=== PATIENT | male | born 1935 | race Caucasian/White ===

== ENCOUNTER 2016-08-07 16:22 | Emergency (ER) | payer MEDICARE ==
--- NOTE | 2016-08-07 16:41 | Emergency Department Record ---
History of Present Illness - General Chief Complaint: Fall Injury Stated Complaint: FELL HEAD & SHOULDER INJURY Time Seen by Provider: 08/07/16 16:33 Source: Patient, Family Mode of Arrival: Ambulatory Limitations: No limitations - History of Present Illness Initial Comments: 81 yo male presents to ED with a CC of [id number] just prior to arrival, currently taking warfarin. Patient denies LOC, reports injury to the face/ forehead and right shoulder. Patient has a history of Lewy-body dementia. Patient denies numbness, weakness, or parasthesias to the extremities. MD Complaint: Fall Onset/Timin -: Minutes(s) Fall From: Standing When Fall Occurred: Just prior to arrival Fall Witnessed: Yes, by family Place Fall Occurred: Home Loss of Consciousness: None Prolonged Down Time?: No Symptoms Prior to Fall: None Location: Head, Face Location - Extremities: Right: Shoulder Severity: Moderate Quality: Aching Context: Tripped/slipped - Debbie Coma Scale Eye Response: (4) Open spontaneously Motor Response: (6) Obeys commands Verbal Response: (5) Oriented Debbie Total: 15 - Related Data Home Medications Medication Instructions Recorded Confirmed Last Taken Amlodipine Besylate [Norvasc] 10 mg PO DAILY 01/29/15 08/07/16 08/07/16 Donepezil HCl [Aricept] 10 mg PO DAILY 01/29/15 08/07/16 08/07/16 Hydrochlorothiazide [Hctz 25Mg] 25 mg PO DAILY 01/29/15 08/07/16 08/07/16 Metoprolol/Hydrochlorothiazide 75 mg PO DAILY 01/29/15 08/07/16 08/07/16 [Metoprolol-Hctz 100-50 mg Tab] Omeprazole [Prilosec] 20 mg PO ASDIR 01/29/15 08/07/16 08/07/16 Oxybutynin Chloride [Oxybutynin 2.5 mg PO BID 01/29/15 08/07/16 08/07/16 Chloride ER] Warfarin Sodium [Coumadin] 2.5 mg PO ASDIR 01/29/15 08/07/16 08/07/16 Warfarin Sodium [Coumadin] 5 mg PO ASDIR 01/29/15 08/07/16 08/07/16 Aspirin [Adult Low Dose Aspirin EC] 81 mg PO DAILY 0408/07/16 08/07/16 Cholecalciferol (Vitamin D3) 1,500 unit PO DAILY 08/07/16 08/07/16 08/07/16 [Vitamin D3] Finasteride [Proscar] 5 mg PO DAILY 08/07/16 08/07/16 08/07/16 Tamsulosin HCl [Flomax] 0.4 mg PO DAILY 08/07/16 08/07/16 08/07/16 Allergies Allergy/AdvReac Type Severity Reaction Status Date / Time Penicillins [PENICILLINS] Allergy Unknown HIVES Verified 08/07/16 16:42 Review of Systems Constitutional: Denies: Chills, Fever, Malaise, Night sweats Eyes: Denies: Eye discharge, Eye pain ENT: Denies: Congestion, Ear pain, Epistaxis Respiratory: Denies: Cough, Dyspnea Cardiovascular: Denies: Chest pain, Dyspnea on exertion Endocrine: Denies: Fatigue, Heat or cold intolerance Gastrointestinal: Denies: Abdominal pain, Nausea, Vomiting Genitourinary: Denies: Incontinence, Retention Musculoskeletal: Reports: Arthralgia (right shoulder pain). Denies: Back pain, Gout, Joint swelling Skin: Reports: Other (abrasions to the face/forehead). Denies: Bruising, Change in color, Change in hair/nails Neurological: Denies: Abnormal gait, Confusion, Headache, Seizure Psychiatric: Denies: Anxiety Hematological/Lymphatic: Reports: Easy bleeding. Denies: Anemia, Blood Clots Past Medical History - SOCIAL HISTORY Smoking Status: Former smoker - RESPIRATORY Hx Respiratory Disorders: Yes Hx Sleep Apnea: Yes Hx of CPAP: Yes - CARDIOVASCULAR Hx Cardio Disorders: Yes Hx Hypertension: Yes Hx Irregular Heartbeat: Yes (a fib) - NEURO Hx Neuro Disorders: Yes Hx Dementia: Yes Comment:: Lewy body dementia - GI Hx GI Disorders: Yes Hx Reflux: Yes Hx of Polyps: Yes - Hx Genitourinary Disorders: Yes Hx Bladder Problem: Yes (urgency) - ENDOCRINE Hx Endocrine Disorders: No - MUSCULOSKELETAL Hx Musculoskeletal Disorders: Yes Hx Arthritis: Yes - PSYCH Hx Psych Problems: Yes Hx Anxiety: Yes Comment:: panic attacks and hallucinations - HEMATOLOGY/ONCOLOGY Hx Hematology/Oncology Disorders: Yes Hx Bruising: Yes Hx Clotting Problems: Yes (r/t coumadin) Family Medical History Hx Cancer: Father *Cancer Comment: colon Hx Dementia: Father Hx Diabetes: Mother Hx Heart Disease: Mother Hx HTN: Mother Physical Exam - General General Appearance: Alert, Oriented x3, Cooperative, Moderate distress, Other ( resting tremor on examination that improves with active movement) Limitations: No limitations - Head Head exam: Other (Abrasions to the right forehead/maxillary region) Head exam detail: Abrasion. negative: Contusion, Galan's sign, Hematoma, Laceration - Eye Eye exam: Normal appearance. negative: Conjunctival injection, Periorbital swelling, Periorbital tenderness, Scleral icterus - ENT Ear exam: negative: Auricular hematoma, Auricular trauma Nasal Exam: negative: Active bleeding, Discharge, Dried blood, Foreign body Mouth exam: negative: Drooling, Laceration, Muffled voice, Tongue elevation - Neck Neck exam: Normal inspection. negative: Meningismus, Tenderness - Respiratory Respiratory exam: Normal lung sounds bilaterally. negative: Rales, Respiratory distress, Rhonchi, Stridor - Cardiovascular Cardiovascular Exam: Regular rate, Normal rhythm, Normal heart sounds - GI/Abdominal GI/Abdominal exam: Soft. negative: Rebound, Rigid, Tenderness - Rectal Rectal exam: Deferred - exam: Deferred - Extremities Extremities exam: Tenderness, Other (TTP along the anterior right shoulder, no evidence for dislocation). negative: Calf tenderness, Pedal edema - Back Back exam: Denies: CVA tenderness (R), CVA tenderness (L) - Neurological Neurological exam: Alert, Normal gait, Oriented X3. negative: Motor sensory deficit - Psychiatric Psychiatric exam: Normal affect, Normal mood - Skin Skin exam: Abrasion (as described above), Normal color Type of lesion: abrasion Course - Reevaluation(s) Reevaluation #1: 08/07/16 17:29 Labs reviewed, INR 1.8, BUN 25/Creatinine 1.5 (at baseline). Awaiting imaging studies at this time. Reevaluation #2: 08/07/16 17:39 CT Brain: Small vessel ischemic disease, nothing acute, chronic retained FB frontal scalp CT Cervical Spine: Degenerative changes, nothing acute CT Maxillo-facial bones: No acute fractures Right Shoulder: Nothing acute. Patient and family updated on all results, patient appears stable for discharge at this time. Reevaluation #3: 08/07/16 17:47 Discussed the risk of delayed bleeding with the patient and family, due to his dementia and confusion/agitation with unfamiliar surroundings as well as the overall low INR, I think the patient would be more comfortable at home and further that the risk of delayed bleeding is low overall. Family was counseled on signs to return to ED for, including headache, confusion, or alteration from his baseline mental status. Medical Decision Making - Lab Data Result diagrams: 08/07/16 16:44 08/07/16 16:44 Critical Care Time Critical Care Time: Yes Total Critical Care Time: 35 Critical Care Time: Trauma activation and multiple CT imaging studies for evaluation. Disposition Disposition: Discharge Clinical Impression: Multiple contusions, Warfarin-induced coagulopathy Fall from standing Qualifiers: Encounter type: initial encounter Qualified Code(s): W19.XXXA - Unspecified fall, initial encounter Abrasion of forehead Qualifiers: Encounter type: initial encounter Qualified Code(s): S00.81XA - Abrasion of other part of head, initial encounter Disposition: Home, Self-Care Condition: (2) Stable Instructions: Fall Prevention for Older Adults (ED) Additional Instructions: Return to ED if your symptoms worsen or if you have any concerns. Follow-up with your family doctor in 3-5 days as directed. Ibuprofen 400 mg every 8-12 hours as needed for the next 3-5 days. Forms: Patient Portal Access Time of Disposition: 17:43
[2016-08-07 16:52] LABS: BASO % 0.7 % (0-6); EOS % 2.4 % (0-6); GRAN % 65.9 % (47-80); HEMATOCRIT 39.7 % (42.0-52.0); HEMOGLOBIN 13.2 gm/dl (14.0-18.0); MEAN CELL VOLUME 86.5 fl (81-97); MEAN CORPUSCULAR HGB CONC 33.2 g/dl (32-36); PLATELET COUNT 269 K/uL (130-400); RED BLOOD COUNT 4.59 M/uL (4.40-5.70); RED CELL DISTRIBUTION WIDTH 13.6 % (11.5-14.5)
[2016-08-07 16:53] LABS: MEAN CORPUSCULAR HEMOGLOBIN 28.7 pg (27-33)
[2016-08-07 17:01] LABS: INR 1.8; PROTHROMBIN TIME (PATIENT) 20.3 SECONDS (9.5-12.1)
[2016-08-07 17:02] LABS: ALB/GLOB RATIO 1.4 (1.1-1.8); ALBUMIN 4.2 gm/dL (3.5-5.0); ANION GAP 8.9 (7-16); BILIRUBIN,TOTAL 0.75 mg/dL (0.2-1.3); CARBON DIOXIDE 31.1 mmol/L (22-30); CREATININE 1.5 mg/dL (0.66-1.25); TOTAL PROTEIN 7.3 gm/dL (6.3-8.2)
== END 2016-08-07 18:06 | disposition home or self-care (01) ==
LOC: ER 16:22
DX: S00.83XA Contusion of other part of head, initial encounter (principal); S00.81XA Abrasion of other part of head, initial encounter; M25.511 Pain in right shoulder; M50.30 Other cervical disc degeneration, unspecified cervical region; D68.32 Hemorrhagic disorder due to extrinsic circulating anticoagulants; T45.515A Adverse effect of anticoagulants, initial encounter; G31.83 Neurocognitive disorder with Lewy bodies; F02.80 Dementia in other diseases classified elsewhere, unspecified severity, without behavioral disturbance, psychotic disturbance, mood disturbance, and anxiety; I10 Essential (primary) hypertension; Z87.891 Personal history of nicotine dependence; W01.0XXA Fall on same level from slipping, tripping and stumbling without subsequent striking against object, initial encounter; Y92.009 Unspecified place in unspecified non-institutional (private) residence as the place of occurrence of the external cause; I48.91 Unspecified atrial fibrillation; Z79.01 Long term (current) use of anticoagulants
CPT/HCPCS: 70450; 70486; 72125; 80053; 85025; 85610; 99284

== ENCOUNTER 2016-09-11 16:10 | Emergency (ER) | payer MEDICARE ==
--- NOTE | 2016-09-11 16:34 | Emergency Department Record ---
History of Present Illness - General Chief Complaint: Fall Injury Stated Complaint: FALL Time Seen by Provider: 09/11/16 16:29 Source: Patient Mode of Arrival: Wheelchair Limitations: No limitations - History of Present Illness Initial Comments: 81 yo male presents to ED s/p [id number] while in the lobby of the hospital leaving after his physical therapy appointment this afternoon. Patient denies injury, denies headache or injury, denies neck pain, denies LOC or syncope, and denies extremity injury. Patient does however take Coumadin at home. MD Complaint: Fall Onset/Timin -: Minutes(s) Fall From: Standing When Fall Occurred: Just prior to arrival Fall Witnessed: Yes, by family, Yes, by bystander Place Fall Occurred: Other Loss of Consciousness: None Prolonged Down Time?: No Symptoms Prior to Fall: None Severity: Mild Severity scale (1-10): 2 Quality: Aching Context: Tripped/slipped, Other Associated Symptoms: Denies - Debbie Coma Scale Eye Response: (4) Open spontaneously Motor Response: (6) Obeys commands Verbal Response: (5) Oriented Debbie Total: 15 - Related Data Home Medications Medication Instructions Recorded Confirmed Last Taken Amlodipine Besylate [Norvasc] 10 mg PO DAILY 01/29/15 09/11/16 08/07/16 Donepezil HCl [Aricept] 10 mg PO DAILY 01/29/15 09/11/16 08/07/16 Hydrochlorothiazide [Hctz 25Mg] 25 mg PO DAILY 01/29/15 09/11/16 08/07/16 Metoprolol/Hydrochlorothiazide 75 mg PO DAILY 01/29/15 09/11/16 08/07/16 [Metoprolol-Hctz 100-50 mg Tab] Omeprazole [Prilosec] 20 mg PO ASDIR 01/29/15 09/11/16 08/07/16 Oxybutynin Chloride [Oxybutynin 2.5 mg PO BID 01/29/15 09/11/16 08/07/16 Chloride ER] Warfarin Sodium [Coumadin] 2.5 mg PO ASDIR 01/29/15 09/11/16 08/07/16 Warfarin Sodium [Coumadin] 5 mg PO ASDIR 01/29/15 09/11/16 08/07/16 Aspirin [Adult Low Dose Aspirin EC] 81 mg PO DAILY 08/07/16 09/11/16 08/07/16 Cholecalciferol (Vitamin D3) 1,500 unit PO DAILY 08/07/16 09/11/16 08/07/16 [Vitamin D3] Finasteride [Proscar] 5 mg PO DAILY 08/07/16 09/11/16 08/07/16 Tamsulosin HCl [Flomax] 0.4 mg PO DAILY 08/07/16 09/11/16 08/07/16 Allergies Allergy/AdvReac Type Severity Reaction Status Date / Time Penicillins [PENICILLINS] Allergy Unknown HIVES Verified 08/07/16 16:42 Travel Screening - Travel/Exposure Within Last 30 Days Have you traveled within the last 30 days?: No Review of Systems Constitutional: Denies: Chills, Fever, Malaise, Night sweats Eyes: Denies: Eye discharge, Eye pain ENT: Denies: Congestion, Ear pain, Epistaxis Respiratory: Denies: Cough, Dyspnea Cardiovascular: Denies: Chest pain, Dyspnea on exertion Endocrine: Denies: Fatigue, Heat or cold intolerance Gastrointestinal: Denies: Abdominal pain, Nausea, Vomiting Genitourinary: Denies: Incontinence, Retention Musculoskeletal: Denies: Arthralgia, Back pain Skin: Denies: Bruising, Change in color, Change in hair/nails Neurological: Denies: Abnormal gait, Confusion, Headache, Seizure Psychiatric: Denies: Anxiety Hematological/Lymphatic: Reports: Easy bleeding, Easy bruising. Denies: Anemia , Blood Clots Past Medical History - SOCIAL HISTORY Smoking Status: Former smoker Alcohol Use: None Drug Use: None - RESPIRATORY Hx Respiratory Disorders: Yes Hx Sleep Apnea: Yes Hx of CPAP: Yes - CARDIOVASCULAR Hx Cardio Disorders: Yes Hx Hypertension: Yes Hx Irregular Heartbeat: Yes (a fib) - NEURO Hx Neuro Disorders: Yes Hx Dementia: Yes Comment:: Lewy body dementia - GI Hx GI Disorders: Yes Hx Reflux: Yes Hx of Polyps: Yes - Hx Genitourinary Disorders: Yes Hx Bladder Problem: Yes (urgency) - ENDOCRINE Hx Endocrine Disorders: No - MUSCULOSKELETAL Hx Musculoskeletal Disorders: Yes Hx Arthritis: Yes - PSYCH Hx Psych Problems: Yes Hx Anxiety: Yes Comment:: panic attacks and hallucinations - HEMATOLOGY/ONCOLOGY Hx Hematology/Oncology Disorders: Yes Hx Bruising: Yes Hx Clotting Problems: Yes (r/t coumadin) Family Medical History Any Significant Family History?: Yes Hx Cancer: Father *Cancer Comment: colon Hx Dementia: Father Hx Diabetes: Mother Hx Heart Disease: Mother Hx HTN: Mother Physical Exam - General General Appearance: Alert, Oriented x3, Cooperative, No acute distress, Other ( resting tremor on examination secondary to Lewy Body dementia) Limitations: No limitations - Head Head exam: Atraumatic, Normocephalic, Normal inspection Head exam detail: negative: Abrasion, Contusion, Galan's sign, General tenderness, Hematoma, Laceration - Eye Eye exam: Normal appearance. negative: Conjunctival injection, Periorbital swelling, Periorbital tenderness, Scleral icterus - ENT Ear exam: negative: Auricular hematoma, Auricular trauma Nasal Exam: negative: Active bleeding, Discharge, Dried blood, Foreign body Mouth exam: negative: Drooling, Laceration, Muffled voice, Tongue elevation - Neck Neck exam: Normal inspection. negative: Meningismus, Tenderness - Respiratory Respiratory exam: Normal lung sounds bilaterally. negative: Rales, Respiratory distress, Rhonchi, Stridor - Cardiovascular Cardiovascular Exam: Regular rate, Normal rhythm, Normal heart sounds - GI/Abdominal GI/Abdominal exam: Soft. negative: Rebound, Rigid, Tenderness - Rectal Rectal exam: Deferred - exam: Deferred - Extremities Extremities exam: Other (resting tremor on examination). negative: Calf tenderness, Pedal edema, Tenderness - Back Back exam: Denies: CVA tenderness (R), CVA tenderness (L), Paraspinal tenderness , Rash noted - Neurological Neurological exam: Alert, Oriented X3. negative: Motor sensory deficit - Psychiatric Psychiatric exam: Normal affect, Normal mood - Skin Skin exam: Normal color. negative: Abrasion Type of lesion: negative: abrasion Course Vital Signs 09/11/16 16:14 Temperature 98.8 F Pulse Rate 68 Respiratory 20 Rate Blood Pressure 119/76 Pulse Ox 96 - Reevaluation(s) Reevaluation #1: 09/11/16 17:07 CT Brain: Chronic changes, nothing acute. CT Cervical Spine: Degenerative changes, nothing acute. Patient updated on his radiology results, patient is putting on his jacket and asking to go home, ambulating with steady gait. Patient appears stable for discharge at this time. Disposition Disposition: Discharge Clinical Impression: Fall from standing Qualifiers: Encounter type: initial encounter Qualified Code(s): W19.XXXA - Unspecified fall, initial encounter Disposition: Home, Self-Care Condition: (2) Stable Instructions: Fall Prevention for Older Adults (ED) Additional Instructions: Return to ED if your symptoms worsen or if you have any concerns. Follow-up with your family doctor in 3-5 days as directed. Forms: Patient Portal Access Time of Disposition: 17:10
== END 2016-09-11 17:18 | disposition home or self-care (01) ==
LOC: ER 16:10
DX: M25.511 Pain in right shoulder (principal); G89.11 Acute pain due to trauma; M50.30 Other cervical disc degeneration, unspecified cervical region; G31.83 Neurocognitive disorder with Lewy bodies; F02.80 Dementia in other diseases classified elsewhere, unspecified severity, without behavioral disturbance, psychotic disturbance, mood disturbance, and anxiety; I48.91 Unspecified atrial fibrillation; Z79.01 Long term (current) use of anticoagulants; W01.0XXA Fall on same level from slipping, tripping and stumbling without subsequent striking against object, initial encounter; Y92.238 Other place in hospital as the place of occurrence of the external cause
CPT/HCPCS: 70450; 72125; 99283

== ENCOUNTER 2017-03-25 17:05 | Emergency (ER) | payer MEDICARE ==
--- NOTE | 2017-03-25 17:59 | Emergency Department Record ---
History of Present Illness - General Chief Complaint: Fall Injury Stated Complaint: FALL HIT HEAD,ON BLOOD THINNER Time Seen by Provider: 03/25/17 17:48 Source: Patient Mode of Arrival: Wheelchair Limitations: No limitations - History of Present Illness Initial Comments: 81 yo male presents to ED for evaluation following a fall while attempting to step around his walker GRETCHEN. Patient reports that he feel backwards striking his head, denies LOC or syncope, and reports mild STS to the back of the head. Patient also reports mild pain to the left mid-femur on examination. Patient denies numbness, tingling, or loss of strength to the extremities, and denies the need for analgesia on examination. Patient is currently taking Coumadin for his atrial fibrillation. MD Complaint: Fall Onset/Timin -: Hour(s) Fall From: Standing, Other When Fall Occurred: 1-3 hours [employer] Fall Witnessed: Yes, by family Place Fall Occurred: Home Loss of Consciousness: None Prolonged Down Time?: No Symptoms Prior to Fall: None Location: Head Location - Extremities: Left: Thigh Severity: Moderate Quality: Aching Context: Tripped/slipped Associated Symptoms: Denies - Kaplan Coma Scale Eye Response: (4) Open spontaneously Motor Response: (6) Obeys commands Verbal Response: (5) Oriented Kaplan Total: 15 - Related Data Home Medications Medication Instructions Recorded Confirmed Last Taken Carbidopa/Levodopa 25Mg/100Mg 25 mg PO TID 03/25/17 03/25/17 Unknown [Sinemet] Sertraline HCl [Zoloft] 25 mg PO DAILY 03/25/17 03/25/17 Unknown Allergies Allergy/AdvReac Type Severity Reaction Status Date / Time Penicillins [PENICILLINS] Allergy Unknown HIVES Verified 08/07/16 16:42 Travel Screening - Travel/Exposure Within Last 30 Days Have you traveled within the last 30 days?: No Review of Systems Constitutional: Denies: Chills, Fever, Malaise, Night sweats Eyes: Denies: Eye discharge, Eye pain ENT: Denies: Congestion, Ear pain, Epistaxis Respiratory: Denies: Cough, Dyspnea Cardiovascular: Denies: Chest pain, Dyspnea on exertion Endocrine: Denies: Fatigue, Heat or cold intolerance Gastrointestinal: Denies: Abdominal pain, Nausea, Vomiting Genitourinary: Denies: Incontinence, Retention Musculoskeletal: Reports: Arthralgia. Denies: Back pain, Gout, Joint swelling Skin: Denies: Bruising, Change in color Neurological: Reports: Headache. Denies: Abnormal gait, Confusion, Numbness, Tingling Psychiatric: Denies: Anxiety Hematological/Lymphatic: Reports: Easy bleeding, Easy bruising. Denies: Anemia , Blood Clots Past Medical History - SOCIAL HISTORY Smoking Status: Former smoker Alcohol Use: None Drug Use: None - RESPIRATORY Hx Respiratory Disorders: Yes Hx Sleep Apnea: Yes Hx of CPAP: Yes - CARDIOVASCULAR Hx Cardio Disorders: Yes Hx Hypertension: Yes Hx Irregular Heartbeat: Yes (a fib) - NEURO Hx Neuro Disorders: Yes Hx Dementia: Yes Comment:: Lewy body dementia - GI Hx GI Disorders: Yes Hx Reflux: Yes Hx of Polyps: Yes - Hx Genitourinary Disorders: Yes Hx Bladder Problem: Yes (urgency) - ENDOCRINE Hx Endocrine Disorders: No - MUSCULOSKELETAL Hx Musculoskeletal Disorders: Yes Hx Arthritis: Yes - PSYCH Hx Psych Problems: Yes Hx Anxiety: Yes Comment:: panic attacks and hallucinations - HEMATOLOGY/ONCOLOGY Hx Hematology/Oncology Disorders: Yes Hx Bruising: Yes Hx Clotting Problems: Yes (r/t coumadin) Family Medical History Any Significant Family History?: Yes Hx Cancer: Father *Cancer Comment: colon Hx Dementia: Father Hx Diabetes: Mother Hx Heart Disease: Mother Hx HTN: Mother Physical Exam - General General Appearance: Alert, Oriented x3, Cooperative, Mild distress Limitations: No limitations - Head Head exam: Atraumatic, Normocephalic, Normal inspection Head exam detail: negative: Abrasion, Contusion, Galan's sign, General tenderness, Hematoma, Laceration - Eye Eye exam: Normal appearance. negative: Conjunctival injection, Periorbital swelling, Periorbital tenderness, Scleral icterus - ENT Ear exam: negative: Auricular hematoma, Auricular trauma Nasal Exam: negative: Active bleeding, Discharge, Dried blood, Foreign body Mouth exam: negative: Drooling, Laceration, Muffled voice, Tongue elevation - Neck Neck exam: Normal inspection. negative: Meningismus, Tenderness - Respiratory Respiratory exam: Normal lung sounds bilaterally. negative: Respiratory distress, Rhonchi, Stridor - Cardiovascular Cardiovascular Exam: Regular rate, Normal rhythm, Normal heart sounds - GI/Abdominal GI/Abdominal exam: Soft. negative: Rebound, Rigid, Tenderness - Rectal Rectal exam: Deferred - exam: Deferred - Extremities Extremities exam: Tenderness, Other (Mild TTP to the left mid-femur, FROM actively on examination however. Strong DPP.). negative: Calf tenderness, Pedal edema - Back Back exam: Denies: CVA tenderness (R), CVA tenderness (L) - Neurological Neurological exam: Alert, Oriented X3 - Psychiatric Psychiatric exam: Normal affect, Normal mood - Skin Skin exam: Normal color. negative: Abrasion Type of lesion: negative: abrasion Course - Reevaluation(s) Reevaluation #1: 03/25/17 18:16 EKG: Atrial Fibrillation Approx. 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 Labs are otherwise grossly unremarkable for an acute process. CT imaging results are pending. Reevaluation #3: 03/25/17 19:17 Left femur: DJD, no acute process Left hip/Pelvis: DJD, no acute fracture CT Brain: Atrophy, small vessel ischemic changes, mucosal thickening maxillary/ right frontal sinuses CT Cervical Spine: No fracture, DJD, no change from previous. Patient was updated on all results, appears stable for discharge at this time. Medical Decision Making - Lab Data Result diagrams: 03/25/17 18:00 03/25/17 18:00 Disposition Disposition: Discharge Clinical Impression: Warfarin-induced coagulopathy Fall Qualifiers: Encounter type: initial encounter Qualified Code(s): W19.XXXA - Unspecified fall, initial encounter Fall from standing Qualifiers: Encounter type: initial encounter Qualified Code(s): W19.XXXA - Unspecified fall, initial encounter Disposition: Home, Self-Care Condition: (2) Stable Instructions: Fall Prevention for Older Adults (ED) Additional Instructions: Return to ED if your symptoms worsen or if you have any concerns. Follow-up with your family doctor in 3-5 days as directed. Forms: Patient Portal Access Time of Disposition: 19:19 Quality - Quality Measures Quality Measures: N/A - Blood Pressure Screening Does Patient Have Any of the Following: No Blood Pressure Classification: Pre-Hypertensive BP Reading Systolic Measurement: 133 Diastolic Measurement: 72 Screening for High Blood Pressure: < Pre-Hypertensive BP, F/U Documented > [ [id number]] Pre-Hypertensive Follow-up Interventions: Referral to alternative/primary care provider.
[2017-03-25 18:16] LABS: BASO % 0.6 % (0-6); EOS % 5.7 % (0-6); GRAN % 56.3 % (47-80); HEMATOCRIT 38.2 % (42.0-52.0); HEMOGLOBIN 12.6 gm/dl (14.0-18.0); LYMPH % 27.4 % (16-45); MEAN CELL VOLUME 87.4 fl (81-97); MEAN CORPUSCULAR HEMOGLOBIN 28.8 pg (27-33); MEAN PLATELET VOLUME 8.8 fl (7.4-10.4); PLATELET COUNT 281 K/uL (130-400); RED BLOOD COUNT 4.37 M/uL (4.40-5.70); RED CELL DISTRIBUTION WIDTH 13.8 % (11.5-14.5); WHITE BLOOD COUNT W/O DIFF 6.9 K/uL (4.2-12.2)
[2017-03-25 18:28] LABS: INR 1.59; PROTHROMBIN TIME (PATIENT) 17.2 SECONDS (9.5-12.1)
[2017-03-25 18:29] LABS: BLOOD UREA NITROGEN 26 mg/dL (8-23); CREATININE 1.2 mg/dL (0.7-1.2); EST GLOMERULAR FILTRATION RATE > 60 mL/min; TOTAL PROTEIN 6.6 g/dL (6.6-8.7)
[2017-03-25 18:31] LABS: GLUCOSE,RANDOM 106 mg/dL (74-109)
[2017-03-25 18:34] LABS: ALB/GLOB RATIO 1.4 (1.1-1.8); ALBUMIN 3.8 g/dL (4.0-5.0); ALKALINE PHOSPHATASE 83 U/L (40-129); ALT/SGPT 8 U/L (<41); AST/SGOT 17 U/L (10.0-50.0)
--- NOTE | 2017-03-26 09:02 | CT SCAN REPORT ---
EXAM: CT OF THE HEAD WITHOUT CONTRAST HISTORY: FALL WITH TRAUMA TO RIGHT SIDE OF HEAD. TECHNIQUE: Routine noncontrast CT examination of the head was performed. Comparison: CT of the head without contrast dated 09/11/16. FINDINGS: The subarachnoid spaces remain dilated consistent with generalized atrophy. The ventricles are not enlarged. Mild periventricular and subcortical white matter lucencies are again noted scattered in each cerebral hemisphere symmetrically. These are nonspecific, but likely areas of chronic small vessel ischemia. No new area of abnormally increased or decreased attenuation is noted throughout the brain substance. No new extraaxial fluid collection is demonstrated. No skull fracture is seen. There is mild mucosal thickening scattered within the maxillary sinuses as well as the inferior aspect of the right frontal sinus. The paranasal sinuses and mastoid air cells are otherwise clear. The orbits as visualized are unremarkable. IMPRESSION: 1. NO CT EVIDENCE OF AN ACUTE INTRACRANIAL ABNORMALITY NOR SKULL FRACTURE WITHOUT SIGNIFICANT CHANGE IN APPEARANCE OF THE BRAIN SINCE 09/11/16. 2. GENERALIZED ATROPHY REDEMONSTRATED. WHITE MATTER LUCENCIES AGAIN NOTED IN EACH CEREBRAL HEMISPHERE CONSISTENT WITH CHRONIC SMALL VESSEL ISCHEMIA. 3. MINOR MUCOSAL THICKENING WITHIN THE MAXILLARY SINUSES AND THE INFERIOR ASPECT OF THE RIGHT FRONTAL SINUS. JOB NUMBER: [id number] MTDD
--- NOTE | 2017-03-26 09:10 | CT SCAN REPORT ---
EXAM: CT OF THE CERVICAL SPINE WITHOUT CONTRAST HISTORY: FALL, ANTICOAGULATION THERAPY. TECHNIQUE: Thin collimation helical CT examination of the cervical spine was performed in the axial plane without intravenous contrast administration. Coronal and sagittal reformatted images are generated and reviewed. Comparison: CT of the cervical spine without contrast dated 09/11/16. FINDINGS: There is redemonstration of straightening of the normal cervical lordosis. The vertebral bodies are otherwise normal in alignment. The vertebral body height is stable with mild smooth concave deformities of the superior and inferior end plates of C3 as well as the superior end plate of C7 redemonstrated. There is a small focus of sclerosis within the left aspect of the C5 vertebral body consistent with a bone island. No acute fracture, subluxation, or prevertebral soft tissue swelling is demonstrated. Moderate degenerative changes of the atlantodental joint redemonstrated, stable. Multilevel degenerative disk/degenerative end plate changes identified most pronounced at the C6-C7 level where they are moderate in degree. They are mild elsewhere. No new osseous cervical spinal stenosis. Multilevel bilateral facet arthropathy is present primarily mild in degree though at the C2-C3 level on the left it is moderate to advanced and causes mild to moderate neural foraminal narrowing. There is also mild to moderate bilateral neural foraminal narrowing at the C3-C4 level, stable. No new cervical mass nor adenopathy is seen. There is minor mucosal thickening within the maxillary sinuses. There is minor atherosclerosis of the common carotid arteries. Minor biapical lung scarring is present. IMPRESSION: 1. NO ACUTE FRACTURE, SUBLUXATION, OR PREVERTEBRAL SOFT TISSUE SWELLING WITHOUT SIGNIFICANT CHANGE IN APPEARANCE OF THE CERVICAL SPINE SINCE 09/11/16. 2. STRAIGHTENING OF THE NORMAL CERVICAL LORDOSIS LIKELY DUE TO POSITIONING OR MUSCLE SPASM. 3. MULTILEVEL DEGENERATIVE CHANGES REDEMONSTRATED. JOB NUMBER: [id number] MTDD
--- NOTE | 2017-03-26 09:12 | RADIOLOGY REPORT ---
EXAM: LEFT FEMUR, TWO VIEWS HISTORY: LEFT HIP AND GROIN PAIN POST FALL TODAY. TECHNIQUE: AP and lateral views of the left femur were obtained. Comparison: Same day unilateral left hip with pelvis. Encounter: Initial. FINDINGS: There is borderline osteopenia. No acute fracture, dislocation, or destructive bone lesion is seen. There are mild degenerative changes of the left hip and left knee. No focal soft tissue abnormality is seen. IMPRESSION: 1. NO ACUTE FRACTURE NOR DISLOCATION IDENTIFIED. 2. MILD DEGENERATIVE CHANGES OF THE LEFT HIP AND LEFT KNEE. JOB NUMBER: [id number] MTDD
--- NOTE | 2017-03-26 09:25 | RADIOLOGY REPORT ---
EXAM: LEFT HIP HISTORY: LEFT HIP PAIN RADIATING INTO GROIN SINCE FALL TODAY. TECHNIQUE: An AP view of the pelvis was obtained as well as AP and frog leg lateral views of the left hip. Comparison: Same day two views of the left femur. FINDINGS: There is borderline osteopenia. No acute fracture, dislocation, or destructive bone lesion is seen. There are mild degenerative changes of each hip. There is a small subchondral cyst within the superolateral right acetabulum measuring 11 mm. There are mild degenerative changes of the visualized lower lumbar spine. IMPRESSION: 1. NO ACUTE FRACTURE NOR DISLOCATION. 2. MILD DEGENERATIVE CHANGES OF EACH HIP. JOB NUMBER: [id number] MTDD
== END 2017-03-25 19:46 | disposition home or self-care (01) ==
LOC: ER 17:05
DX: G89.11 Acute pain due to trauma (principal); M79.652 Pain in left thigh; M25.552 Pain in left hip; R51 Headache; M54.2 Cervicalgia; D68.32 Hemorrhagic disorder due to extrinsic circulating anticoagulants; G20 Parkinson's disease; F02.80 Dementia in other diseases classified elsewhere, unspecified severity, without behavioral disturbance, psychotic disturbance, mood disturbance, and anxiety; I10 Essential (primary) hypertension; I48.91 Unspecified atrial fibrillation; Z79.01 Long term (current) use of anticoagulants; Z87.891 Personal history of nicotine dependence; W01.198A Fall on same level from slipping, tripping and stumbling with subsequent striking against other object, initial encounter; Y92.009 Unspecified place in unspecified non-institutional (private) residence as the place of occurrence of the external cause
CPT/HCPCS: 70450; 72125; 80053; 85025; 85610; 93005; 93010; 99284

== ENCOUNTER 2017-10-16 13:05 | Observation (INO) | payer MEDICARE, MEDICAID ==
--- NOTE | 2017-10-16 13:38 | Emergency Department Record ---
History of Present Illness - General Chief Complaint: Fall Injury Stated Complaint: FALL HIT ;HEAD Time Seen by Provider: 10/16/17 13:13 Source: Patient, Family Mode of Arrival: Ambulatory Limitations: No limitations - History of Present Illness Initial Comments: Pt ambulates to ED with and son from home. Pt on Coumadin daily for Afiba nd coag issues. Pt was "squatted down and pulling on a piece of wood used to lock a slider door. The wood came loose and he fell backward striking his head on the vinal carlos behind him." There was no LOC, no BULLOCK, no other injury or pains. No prior evaluation. Family notes normal behavior with hx of dementia. MD Complaint: Fall Onset/Timin -: Hour(s) Fall From: Standing When Fall Occurred: Just prior to arrival Fall Witnessed: No Place Fall Occurred: Home Loss of Consciousness: None Prolonged Down Time?: No Symptoms Prior to Fall: None Location: Head Severity: Mild Severity scale (1-10): 3 Quality: Dull Associated Symptoms: Denies - Debbie Coma Scale Eye Response: (4) Open spontaneously Motor Response: (6) Obeys commands Verbal Response: (5) Oriented [place] Total: 15 - Related Data Allergies Allergy/AdvReac Type Severity Reaction Status Date / Time Penicillins [PENICILLINS] Allergy Unknown HIVES Verified 10/16/17 13:29 Travel Screening - Travel/Exposure Within Last 30 Days Have you traveled within the last 30 days?: No Review of Systems Constitutional: Denies: Chills, Fever Eyes: Denies: Eye discharge, Eye pain, Vision change ENT: Denies: Congestion Respiratory: Denies: Cough, Dyspnea Cardiovascular: Denies: Arrhythmia, Chest pain Endocrine: Denies: Fatigue Gastrointestinal: Denies: Abdominal pain Genitourinary: Denies: Dysuria, Frequency Musculoskeletal: Reports: Neck pain (mild lateral neck discomfort, no miline pain with full ROM. ). Denies: Back pain, Joint swelling Skin: Denies: Bruising, Rash Neurological: Denies: Abnormal gait, Confusion, Headache, Weakness Psychiatric: Denies: Anxiety, Auditory hallucinations Hematological/Lymphatic: Denies: Anemia Past Medical History - SOCIAL HISTORY Smoking Status: Former smoker Alcohol Use: None Drug Use: None - RESPIRATORY Hx Respiratory Disorders: Yes Hx Sleep Apnea: Yes Hx of CPAP: Yes - CARDIOVASCULAR Hx Cardio Disorders: Yes Hx Hypertension: Yes Hx Irregular Heartbeat: Yes (a fib) - NEURO Hx Neuro Disorders: Yes Hx Dementia: Yes Comment:: Lewy body dementia - GI Hx GI Disorders: Yes Hx Reflux: Yes Hx of Polyps: Yes - Hx Genitourinary Disorders: Yes Hx Bladder Problem: Yes (urgency) - ENDOCRINE Hx Endocrine Disorders: No - MUSCULOSKELETAL Hx Musculoskeletal Disorders: Yes Hx Arthritis: Yes - PSYCH Hx Psych Problems: Yes Hx Anxiety: Yes Comment:: panic attacks and hallucinations - HEMATOLOGY/ONCOLOGY Hx Hematology/Oncology Disorders: Yes Hx Bruising: Yes Hx Clotting Problems: Yes (r/t coumadin; produces too much Vit K) Family Medical History Any Significant Family History?: Yes Hx Cancer: Father *Cancer Comment: colon Hx Dementia: Father Hx Diabetes: Mother Hx Heart Disease: Mother Hx HTN: Mother Physical Exam - General General Appearance: Oriented x3, Cooperative, No acute distress Limitations: No limitations - Head Head exam: Other (Scalp hematoma posterior scalp, no depression on palpation, no Galan,s/Rac. ) Head exam detail: Contusion, Hematoma. negative: Galan's sign, CSF otorrhea, CSF rhinorrhea, Laceration, [place] eyes, Tenderness of temporal artery - Eye Eye exam: Normal appearance, PERRL (small but reactive), EOMI. negative: Periorbital swelling, Periorbital tenderness Pupils: Normal accommodation - ENT ENT exam: Normal exam, Normal external ear exam, Normal orophraynx Ear exam: Normal external inspection Nasal Exam: Normal inspection Mouth exam: Normal external inspection Teeth exam: Normal inspection Throat exam: Normal inspection - Neck Neck exam: Full ROM, Tenderness (no midline pain with full ROM) - Respiratory Respiratory exam: Normal lung sounds bilaterally. negative: Chest wall tenderness, Decreased breath sounds, Rales, Rhonchi - Cardiovascular Cardiovascular Exam: Regular rate, Normal rhythm - GI/Abdominal GI/Abdominal exam: Soft, Normal bowel sounds. negative: Guarding, Rebound, Tenderness - Rectal Rectal exam: Deferred - exam: Deferred - Extremities Extremities exam: Normal inspection, Full ROM, Normal capillary refill. negative: Joint swelling, Tenderness - Back Back exam: Reports: Normal inspection. Denies: CVA tenderness (L), Paraspinal tenderness, Vertebral tenderness - Neurological Neurological exam: Alert, CN II-XII intact, Oriented X3 - Psychiatric Psychiatric exam: Normal affect, Normal mood - Skin Skin exam: Intact, Normal color Course Vital Signs 10/16/17 13:17 Temperature 98.5 F Pulse Rate 71 Respiratory 20 Rate Blood Pressure 105/82 Pulse Ox 96 - Reevaluation(s) Reevaluation #1: 10/16/17 14:24 Resting comfortable, no pain, no BULLOCK, exam unchanged. Plan for admission for neuro checks and repeat CT in AM. Medical Decision Making - Management Options MDM Management: Additional Work-up Planned (e.g. ADM/Transfer/OP Study) - Data Complexity MDM Data: Labs Ordered and/or Reviewed, X-Ray Ordered and/or Reviewed, Decision to Obtain Old Record, Review and Summary of Old Record Discussed - Lab Data Result diagrams: 10/16/17 13:40 10/16/17 13:40 - Radiology Data Radiology results: Report reviewed, Image reviewed Disposition Disposition: Admit Clinical Impression: Head injury due to trauma, Anticoagulant long-term use Disposition: Still a Patient at [facility] Decision to Admit: Admit from ER, Accidental Injury Decision to Admit Date: 10/16/17 Decision to Admit Time: 14:26 Accepting Physician: Dr. Pena (s/w Ruthie Melton NP) Time Discussed w/Accepting Physician: 14:27 Condition: (3) Guarded Forms: Patient Portal Access Quality - Quality Measures Quality Measures: N/A, Blunt Head Trauma (>2yr) - Blunt Head Trauma - Adult Quality Measure: Measure #415: Utilization of CT for Minor Blunt Head Trauma ICD10 Codes Entered: Yes Was CT ordered: Yes Does Patient Have Any of the Following: Multisystem Trauma [place] Score: Please complete Debbie Coma Scale above Utilization of CT for Minor Blunt Head Trauma: < CT Done, Appropriate Indication > [G9529] Additional Inclusion Criteria: Within 24hrs (AND) GCS of 15 (AND) CT ordered. [ G9530] Indications For CT: Taking Anticoagulant Medication, Dangerous Mechanism of Injury - Blood Pressure Screening Does Patient Have Any of the Following: No Blood Pressure Classification: Pre-Hypertensive BP Reading Systolic Measurement: 105 Diastolic Measurement: 82 Screening for High Blood Pressure: Patient Exclusion, Hx of HTN [G9744]
[2017-10-16 13:49] LABS: BASO % 0.8 % (0-6); EOS % 3.4 % (0-6); HEMATOCRIT 38.7 % (42.0-52.0); HEMOGLOBIN 12.6 gm/dl (14.0-18.0); LYMPH % 21.1 % (16-45); MEAN CELL VOLUME 86.4 fl (81-97); MEAN CORPUSCULAR HEMOGLOBIN 28.1 pg (27-33); MEAN CORPUSCULAR HGB CONC 32.6 g/dl (32-36); MONO % 9.7 % (0-9); PLATELET COUNT 280 K/uL (130-400); RED BLOOD COUNT 4.48 M/uL (4.40-5.70); RED CELL DISTRIBUTION WIDTH 13.6 % (11.5-14.5); WHITE BLOOD COUNT W/O DIFF 7.7 K/uL (4.2-12.2)
[2017-10-16 13:58] LABS: CREATININE 1.4 mg/dL (0.7-1.2)
[2017-10-16 14:01] LABS: INR 1.5; PROTHROMBIN TIME (PATIENT) 16.7 SECONDS (9.5-12.1)
[2017-10-16] MEDS ORDERED: Non-Formulary MISC (Omeprazole 20 MG) PO SCH (15:15)
[2017-10-16] MEDS: METOPROLOL SUCC 50 MG TABLET PO SCH (19:26)
[2017-10-16 19:30] LABS: CREATININE 1.5 mg/dL (0.7-1.2)
--- NOTE | 2017-10-16 20:31 | History & Physical ---
History of Present Illness - Date of Service Date of Service for History & Physical: 10/17/17 - History of Present Illness Admitting Diagnosis: head injury after Fall on Coumadin History of Present Illness: 82 yo male admitted for head injury and observation of neurologic function r/t correction anticoagulation use. PMH sub therapeutics INR baseline, AFIB, dementia , parkinson's disease. 10/16/17 Pt ambulated into ER with and son, reported head injury from fall backward. Denies LOC, on coumadin r/t chronic AFib. Pt and report that pt was attempting to removed a board from the sliding door frame, was in a bent position and fell backwards. Hit the back of his head , no LOC. Pt's reports that pt refused to go to ER until he had eaten his lunch and then presented to ER. VS 105/82, HR 71(chronic Afib), RR 20 , 96% RA, 98.5F. GCS 15 WBC 7.7, Hgb 12.6, Hct 38.7, plt 280 NA 144, K 3.5, Cl 97, BUN 29, creatinine 1.4, GFR 52 Pt 16.7, INR 1.5 (home meds coumadin 7.5mg daily except 5mg wed, following low vit K diet) CT head- no acute process Ct C-spine- no acute process Admit OBS with neuro checks q 2 hours Cont tele monitor 10/16/17 Inpt nursing updated provider about possible RVR, non sustained noted this evening. Pt VSS, asymptomatic. Nursing instructed to give metoprolol early to control RVR. STAT BMP and mag show stable electrolytes. Nursing to continue to monitor and notify provider of any changes, symptomatic issues, or sustained RVR. 10/17/[address] Liu's office about INR management, awaiting call back. Pt reports that INR has not been checked in several months. reports that [facility] was monitoring INR but pt had insurance change and [facility]. [facility] came to the home once and stated they would return monthly to check INR. reports that [facility] never returned to the home to monitor INR and nothing was checked for months. She states she called Dr Liu's office to coordinate care but had not been successful in doing so, then pt fell and is in observation at this time. [facility] called back and will get outpt dispo plan set up for potential d/c and INR mgt. Pt has appt 10/25/17 845am with Nidia RENE with Dr Liu's office, continue coumadin 7.5mg daily, labs drawn before appt in the AM same day. Ok to dispo to Dr Liu's care. PCP Noe Specialist Neurology, [facility] Travel Screening - Travel/Exposure Within Last 30 Days Have you traveled within the last 30 days?: No - Travel/Exposure Within Last Year Have you traveled outside the [place] in the last year?: No - Additonal Travel Details Have you been exposed to anyone with a communicable illness?: No - Travel Symptoms Symptom Screening: None Review of Systems Constitutional: Denies: Chills, Fever Eyes: Denies: Eye discharge, Eye pain, Vision change ENT: Denies: Congestion Respiratory: Denies: Cough, Dyspnea Cardiovascular: Denies: Arrhythmia, Chest pain Endocrine: Denies: Fatigue Gastrointestinal: Denies: Abdominal pain Genitourinary: Denies: Dysuria, Frequency Musculoskeletal: Reports: Neck pain (mild lateral neck discomfort, no miline pain with full ROM. ). Denies: Back pain, Joint swelling Skin: Denies: Bruising, Rash Neurological: Denies: Abnormal gait, Confusion, Headache, Weakness Psychiatric: Denies: Anxiety, Auditory hallucinations Hematological/Lymphatic: Denies: Anemia Past Medical History - SOCIAL HISTORY Smoking Status: Former smoker Alcohol Use: None Drug Use: None - RESPIRATORY Hx Respiratory Disorders: Yes Hx Sleep Apnea: Yes Hx of CPAP: Yes - CARDIOVASCULAR Hx Cardio Disorders: Yes Hx Hypertension: Yes Hx Irregular Heartbeat: Yes (a fib) - NEURO Hx Neuro Disorders: Yes Hx Dementia: Yes Comment:: Lewy body dementia - GI Hx GI Disorders: Yes Hx Reflux: Yes Hx of Polyps: Yes - Hx Genitourinary Disorders: Yes Hx Bladder Problem: Yes (urgency) - ENDOCRINE Hx Endocrine Disorders: No - MUSCULOSKELETAL Hx Musculoskeletal Disorders: Yes Hx Arthritis: Yes - PSYCH Hx Psych Problems: Yes Hx Anxiety: Yes Comment:: panic attacks and hallucinations - HEMATOLOGY/ONCOLOGY Hx Hematology/Oncology Disorders: Yes Hx Bruising: Yes Hx Clotting Problems: Yes (r/t coumadin; produces too much Vit K) Family Medical History Any Significant Family History?: Yes Hx Cancer: Father *Cancer Comment: colon Hx Dementia: Father Hx Diabetes: Mother Hx Heart Disease: Mother Hx HTN: Mother H&P Meds/Allergies - Allergies Allergies: Allergies Allergy/AdvReac Type Severity Reaction Status Date / Time Penicillins [PENICILLINS] Allergy Unknown HIVES Verified 10/16/17 13:29 - Home Medications Home Medications Medication Instructions Recorded Confirmed Last Taken Metoprolol Succinate 50 mg PO DAILY 10/17/17 10/17/17 Unknown - Active Medications Active Medications: Current Medications Amlodipine Besylate (Norvasc) 10 mg PO DAILY [facility] Carbidopa/Levodopa (Sinemet) 1.5 each PO BID [facility] Donepezil HCl (Aricept) 10 mg PO DAILY [facility] Hydrochlorothiazide (Hctz 25mg) 25 mg PO DAILY [facility] Metoprolol Succinate (Toprol Xl) 50 mg PO DAILY [facility] Last Admin: 10/16/17 19:26 Dose: 50 mg Non-Formulary Medication (Finasteride [Proscar]) 5 mg PO DAILY [facility] Pantoprazole Sodium (Protonix) 40 mg PO DAILYAC [facility]HELLE Sertraline HCl (Zoloft) 50 mg PO QHS [facility] Vitamin D (Vitamin D3) 1,500 unit PO DAILY [facility] Physical Exam - Vital Signs Vital Signs: Vital Signs - Last 24 Hrs Temp Pulse Pulse Resp BP BP Pulse Ox 10/16/17 18:29 98.6 F 64 18 113/58 99 10/16/17 16:14 80 16 10/16/17 15:52 97.7 F 70 18 126/76 95 10/16/17 14:45 67 20 96/72 94 L 10/16/17 13:45 64 20 127/89 96 10/16/17 13:17 98.5 F 71 20 105/82 96 - General General Appearance: Oriented x3, Cooperative, No acute distress Limitations: No limitations - Head Head exam: Other (Scalp hematoma posterior scalp, no depression on palpation, no Galan,s/Rac. ) Head exam detail: Other (no contusion/hematoma noted 10/17/17). negative: Contusion, Galan's sign, CSF otorrhea, CSF rhinorrhea, Hematoma, Laceration, [place] eyes, Tenderness of temporal artery - Eye Eye exam: Normal appearance, PERRL (small but reactive), EOMI. negative: Periorbital swelling, Periorbital tenderness Pupils: Normal accommodation - ENT ENT exam: Normal exam, Normal external ear exam, Normal orophraynx Ear exam: Normal external inspection Nasal Exam: Normal inspection Mouth exam: Normal external inspection Teeth exam: Other (dentures) Throat exam: Normal inspection - Neck Neck exam: Full ROM, Tenderness (no midline pain with full ROM) - Respiratory Respiratory exam: Normal lung sounds bilaterally. negative: Chest wall tenderness, Decreased breath sounds, Rales, Rhonchi - Cardiovascular Cardiovascular Exam: Other (Afib) Peripheral Pulses: 2+: Radial (R), Radial (L), Dorsalis Pedis (R), Dorsalis Pedis (L) - GI/Abdominal GI/Abdominal exam: Soft, Normal bowel sounds. negative: Guarding, Rebound, Tenderness - Rectal Rectal exam: Deferred - exam: Deferred - Extremities Extremities exam: Normal inspection, Full ROM, Normal capillary refill. negative: Joint swelling, Tenderness - Back Back exam: Reports: Normal inspection. Denies: CVA tenderness (L), Paraspinal tenderness, Vertebral tenderness - Neurological Neurological exam: Alert, CN II-XII intact, Oriented X3 - Psychiatric Psychiatric exam: Flat affect, Normal mood - Skin Skin exam: Intact, Normal color Results - Labs Result Diagrams: 10/16/17 13:40 10/16/17 19:15 Labs Last 24 Hours: Laboratory Results - last 24 hr 10/16/17 10/16/17 10/16/17 13:40 13:40 13:40 WBC 7.7 RBC 4.48 Hgb 12.6 L Hct 38.7 L MCV 86.4 MCH 28.1 MCHC 32.6 RDW 13.6 Plt Count 280 MPV 9.0 Gran % 65.0 Lymphocytes % 21.1 Monocytes % 9.7 H Eosinophils % 3.4 Basophils % 0.8 PT 16.7 H INR 1.5 Sodium 144 Potassium 3.5 Chloride 97 L Carbon Dioxide 30.0 H Anion Gap 17.0 H BUN 29 H Creatinine 1.4 H Estimated GFR 52 Random Glucose 109 Calcium 8.9 Magnesium 10/16/17 10/16/17 19:08 19:15 WBC RBC Hgb Hct MCV MCH MCHC RDW Plt Count MPV Gran % Lymphocytes % Monocytes % Eosinophils % Basophils % PT INR Sodium Cancelled 144 Potassium Cancelled 3.9 Chloride Cancelled 98 Carbon Dioxide Cancelled 30.0 H Anion Gap Cancelled 16.0 BUN Cancelled 29 H Creatinine Cancelled 1.5 H Estimated GFR Cancelled 48 Random Glucose Cancelled 110 H Calcium Cancelled 8.9 Magnesium 2.1 - Imaging and Cardiology CT scan - head Status: Report reviewed VTE H&P Assessment - Risk for VTE Risk for VTE: Yes Risk Level: Moderate Risk Assessment Date: 10/17/17 Risk Assessment Time: 09:34 VTE Orders Placed or Will Be Placed: No VTE Reason for No Prophylaxis: Not Indicated (sub theraputic coumadin-will adjust coumadin) Plan - Detailed Diagnosis and Plan (1) Head injury due to trauma Current Visit: Yes Status: Acute Base Code: S09.90XA - UNSPECIFIED INJURY OF HEAD, INITIAL ENCOUNTER Comment: 10/16/17 -negative CT head and neck ER -neruo checks q 2 hrs with VS -repeat Ct head in the am 10/17/17 -neuro checks normal (baseline) -VSS -awaiting repeat CT report - Cn 2-12 intact (2) Anticoagulant long-term use Current Visit: Yes Status: Acute Base Code: Z79.01 - ARCHITECTURAL PROJECT MANAGER (CURRENT) USE OF ANTICOAGULANTS Comment: 10/16/17 -INR 1.5 (subtheraputic) -coumadin held at HS r/t awaiting repeat head CT to r/o bleeding 10/17/17 -repeat CT completed, awaiting report -Dr Liu's office contacted to coordinate outpt INR mgt (3) Abrasion of forehead Current Visit: No Status: Inactive Qualifiers: Encounter type: initial encounter Qualified Code(s): S00.81XA - Abrasion of other part of head, initial encounter Base Code: S00.81XA - ABRASION OF OTHER PART OF HEAD, INITIAL ENCOUNTER Comment: 10/17/17 -resolved (4) Multiple contusions Current Visit: No Status: Inactive Base Code: T14.8 - OTHER INJURY OF UNSPECIFIED BODY REGION * DO NOT USE * Comment: 10/17/17 -resolved (5) Chronic a-fib Current Visit: Yes Status: Acute Base Code: I48.2 - CHRONIC ATRIAL FIBRILLATION Comment: 10/16/17 -pt remained on monitor, Afib/aflutter -concerns in the evening with potential RVR, repeat EKG obtained and it is considered tele to be picking up parkinson's artifact -K 3.9, mag 2.1 10/17/17 -pt is baseline, tele reading afib with artifact -VSS (6) Full code status Current Visit: Yes Status: Acute Base Code: Z78.9 - OTHER SPECIFIED HEALTH STATUS Comment: 10/17/17 full code status
[2017-10-16] MEDS: CARBIDOPA/LEVODOPA 25MG/100MG TABLET PO SCH (21:04)
[2017-10-16] MEDS ORDERED: SERTRALINE HCL 50 MG TABLET PO SCH (22:00)
[2017-10-16] MEDS ORDERED: CALCIUM CARBONATE 500 MG TAB.CHEW PO PRN (22:04)
--- NOTE | 2017-10-16 22:06 | CT SCAN REPORT ---
EXAM: CT SCAN HEAD WO CONTRAST HISTORY: FALL. TECHNIQUE: Sequential axial images were obtained from the foramen magnum to the vertex without contrast administration. FINDINGS: The brain volume is normal. No large territorial infarct, hemorrhage , mass effect, or midline shift. No extraaxial fluid collection. Orbits, paranasal sinuses and mastoid air cells are normal. No depressed skull fracture. IMPRESSION: NO ACUTE INTRACRANIAL ABNORMALITY IS APPRECIATED. JOB NUMBER: [id number] [facility]
--- NOTE | 2017-10-16 22:11 | CT SCAN REPORT ---
EXAM: CT SCAN CERVICAL SPINE WO CONTRAST HISTORY: FALL. TECHNIQUE: Sequential axial images were obtained through the cervical spine without intravenous contrast administration. Sagittal and coronal reformatted images were performed. COMPARISON: 03/25/2017. FINDINGS: There is normal vertebral body height and alignment. No evidence of fracture, subluxation, or perched facet. There is degenerative change at C6-7. There is a single sclerotic focus in the C5 vertebral body. This is likely livestock sales representative of a bone island. IMPRESSION: 1. NO EVIDENCE OF FRACTURE, SUBLUXATION, OR PERCHED FACET. 2. MILD DEGENERATIVE CHANGE AT C6-7. JOB NUMBER: [id number] MTDD
[2017-10-17] MEDS ORDERED: PANTOPRAZOLE SODIUM 40 MG TABLET PO SCH (07:00)
[2017-10-17 07:20] LABS: INR 1.6; PROTHROMBIN TIME (PATIENT) 17.5 SECONDS (9.5-12.1)
[2017-10-17] MEDS: CARBIDOPA/LEVODOPA 25MG/100MG TABLET PO SCH (09:11)
[2017-10-17] MEDS: METOPROLOL SUCC 50 MG TABLET PO SCH (09:12)
[2017-10-17] MEDS ORDERED: HYDROCHLOROTHIAZIDE 25 MG TABLET PO SCH (10:00)
[2017-10-17] MEDS ORDERED: CHOLECALCIFEROL 1,000 UNIT TABLET PO SCH (10:00)
[2017-10-17] MEDS ORDERED: AMLODIPINE BESYLATE 5MG TAB PO SCH (10:00)
[2017-10-17] MEDS ORDERED: DONEPEZIL HCL 5 MG TABLET PO SCH (10:00)
[2017-10-17] MEDS ORDERED: [UNRECOGNIZED DRUG - OTHER] PO SCH (10:00)
[2017-10-17] MEDS ORDERED: METOPROLOL PO SCH (10:00)
[2017-10-17] MEDS ORDERED: Non-Formulary MISC (Finasteride [Proscar] 5 MG) PO SCH (10:00)
[2017-10-17] MEDS ORDERED: HYDROCHLOROTHIAZIDE PO SCH (10:00)
--- NOTE | 2017-10-17 11:18 | Discharge Summary ---
Providers Discharge Summary Date: 10/17/17 Date of admission: 10/16/17 15:23 Expected Date of Discharge: 10/17/17 Attending physician: SHANTEL PADGETT Primary care physician: Oswald Liu Physical Exam - Vital Signs Vital Signs: Vital Signs - Last 24 Hrs Temp Pulse Pulse Resp BP BP Pulse Ox 10/17/17 10:00 54 L 16 101/53 95 10/17/17 09:00 55 L 18 10/17/17 08:00 98.6 F 55 L 18 107/61 96 10/17/17 06:00 53 L 18 121/108 93 L 10/17/17 03:53 97.4 F L 66 16 109/81 92 L 10/17/17 02:00 97.9 F 60 16 127/102 95 10/16/17 22:00 98.0 F 91 H 17 124/63 91 L 10/16/17 21:00 91 H 16 10/16/17 20:00 98.1 F 62 20 129/78 96 10/16/17 18:29 98.6 F 64 18 113/58 99 10/16/17 16:14 80 16 10/16/17 15:52 97.7 F 70 18 126/76 95 10/16/17 14:45 67 20 96/72 94 L 10/16/17 13:45 64 20 127/89 96 10/16/17 13:17 98.5 F 71 20 105/82 96 - General General Appearance: Oriented x3, Cooperative, No acute distress Limitations: No limitations - Head Head exam: Other (Scalp hematoma posterior scalp, no depression on palpation, no Galan,s/Rac. ) Head exam detail: Other (no contusion/hematoma noted 10/17/17). negative: Contusion, Galan's sign, CSF otorrhea, CSF rhinorrhea, Hematoma, Laceration, [place] eyes, Tenderness of temporal artery - Eye Eye exam: Normal appearance, PERRL (small but reactive), EOMI. negative: Periorbital swelling, Periorbital tenderness Pupils: Normal accommodation - ENT ENT exam: Normal exam, Normal external ear exam, Normal orophraynx Ear exam: Normal external inspection Nasal Exam: Normal inspection Mouth exam: Normal external inspection Teeth exam: Other (dentures) Throat exam: Normal inspection - Neck Neck exam: Full ROM, Tenderness (no midline pain with full ROM) - Respiratory Respiratory exam: Normal lung sounds bilaterally. negative: Chest wall tenderness, Decreased breath sounds, Rales, Rhonchi - Cardiovascular Cardiovascular Exam: Other (Afib) Peripheral Pulses: 2+: Radial (R), Radial (L), Dorsalis Pedis (R), Dorsalis Pedis (L) - GI/Abdominal GI/Abdominal exam: Soft, Normal bowel sounds. negative: Guarding, Rebound, Tenderness - Rectal Rectal exam: Deferred - exam: Deferred - Extremities Extremities exam: Normal inspection, Full ROM, Normal capillary refill. negative: Joint swelling, Tenderness - Back Back exam: Reports: Normal inspection. Denies: CVA tenderness (L), Paraspinal tenderness, Vertebral tenderness - Neurological Neurological exam: Alert, CN II-XII intact, Oriented X3 - Psychiatric Psychiatric exam: Flat affect, Normal mood - Skin Skin exam: Intact, Normal color Hospitalization - Hospitalization Admission Diagnosis: head injury after Fall on Coumadin - Problem List/Discharge Diagnosis (1) Head injury due to trauma Current Visit: Yes Status: Resolved Base Code: S09.90XA - UNSPECIFIED INJURY OF HEAD, INITIAL ENCOUNTER Comment: 10/16/17 -negative CT head and neck ER -neruo checks q 2 hrs with VS -repeat Ct head in the am 10/17/17 -neuro checks normal (baseline) -VSS -awaiting repeat CT report - Cn 2-12 intact -repeat CT negative for acute process -dispo to Dr Liu's care (2) Anticoagulant long-term use Current Visit: Yes Status: Chronic Base Code: Z79.01 - HALFWAY (CURRENT) USE OF ANTICOAGULANTS Comment: 10/16/17 -INR 1.5 (subtheraputic) -coumadin held at HS r/t awaiting repeat head CT to r/o bleeding 10/17/17 -repeat CT completed, awaiting report -Dr Liu's office contacted to coordinate outpt INR mgt -Dr Liu will continue to mgt outpt. take 7.5mg coumadin daily, f/u appt 845am, INR do be drawn the AM before appt (3) Chronic a-fib Current Visit: Yes Status: Chronic Base Code: I48.2 - CHRONIC ATRIAL FIBRILLATION Comment: 10/16/17 -pt remained on monitor, Afib/aflutter -concerns in the evening with potential RVR, repeat EKG obtained and it is considered tele to be picking up parkinson's artifact -K 3.9, mag 2.1 10/17/17 -pt is baseline, tele reading afib with artifact -VSS (4) Full code status Current Visit: Yes Status: Acute Base Code: Z78.9 - OTHER SPECIFIED HEALTH STATUS Comment: 10/17/17 full code status - Disposition Negative head Ct x2 INR sub therapeutic, has not been checked for several months at home Dr Liu to manage outpt, has appt 10/25/17 with Nidia RENE Coumadin 7.5mg daily, repeat INR prior to appt. Return for BULLOCK, CP, SOB, weakness in one arm or leg, increased confusion, or another injury. - Hospitalization Course Disposition: Home, Self-Care Hospital Course: 82 yo male admitted for head injury and observation of neurologic function r/t [facility] anticoagulation use. PMH sub therapeutics INR baseline, AFIB, dementia , parkinson's disease. 10/16/17 Pt ambulated into ER with and son, reported head injury from fall backward. Denies LOC, on coumadin r/t chronic AFib. Pt and report that pt was attempting to removed a board from the sliding door frame, was in a bent position and fell backwards. Hit the back of his head , no LOC. Pt's reports that pt refused to go to ER until he had eaten his lunch and then presented to ER. VS 105/82, HR 71(chronic Afib), RR 20 , 96% RA, 98.5F. GCS 15 WBC 7.7, Hgb 12.6, Hct 38.7, plt 280 NA 144, K 3.5, Cl 97, BUN 29, creatinine 1.4, GFR 52 Pt 16.7, INR 1.5 (home meds coumadin 7.5mg daily except 5mg wed, following low vit K diet) CT head- no acute process Ct C-spine- no acute process Admit OBS with neuro checks q 2 hours Cont tele monitor 10/16/17 Inpt nursing updated provider about possible RVR, non sustained noted this evening. Pt VSS, asymptomatic. Nursing instructed to give metoprolol early to control RVR. STAT BMP and mag show stable electrolytes. Nursing to continue to monitor and notify provider of any changes, symptomatic issues, or sustained RVR. 10/17/[address] Liu's office about INR management, awaiting call back. Pt reports that INR has not been checked in several months. reports that [facility] was monitoring INR but pt had insurance change and [facility] was to take over. [facility] came to the home once and stated they would return monthly to check INR. reports that [facility] never returned to the home to monitor INR and nothing was checked for months. She states she called Dr Liu's office to coordinate care but had not been successful in doing so, then pt fell and is in observation at this time. [facility] called back and will get outpt dispo plan set up for potential d/c and INR mgt. Pt has appt 10/25/17 845am with Nidia RENE with Dr Liu's office, continue coumadin 7.5mg daily, labs drawn before appt in the AM same day. Ok to dispo to Dr Liu's care. PCP Noe Specialist Neurology, [facility] Procedures: Imaging and X-Rays 10/16/17 13:13 CERVICAL SPINE WO CONTRAST [CT] Stat HEAD WO CONTRAST [CT] Stat 10/17/17 07:30 HEAD WO CONTRAST [CT] Routine Cardiology Procedures 10/16/17 15:12 EKG NOW 10/16/17 18:01 Metallurgy Laboratory Technician NOW 10/16/17 19:00 EKG NOW Abnormal Labs: Abnormal Lab Results 10/16/17 10/16/17 10/16/17 Range/Units 13:40 13:40 13:40 Hgb 12.6 L (14.0-18.0) gm/dl Hct 38.7 L (42.0-52.0) % Monocytes % 9.7 H (0-9) % PT 16.7 H (9.5-12.1) SECONDS Chloride 97 L (98-107) mmol/L Carbon Dioxide 30.0 H (22-29) mmol/L Anion Gap 17.0 H (7-16) BUN 29 H (8-23) mg/dL Creatinine 1.4 H (0.7-1.2) mg/dL Random Glucose (74-109) mg/dL 10/16/17 10/17/17 Range/Units 19:15 06:45 Hgb (14.0-18.0) gm/dl Hct (42.0-52.0) % Monocytes % (0-9) % PT 17.5 H (9.5-12.1) SECONDS Chloride (98-107) mmol/L Carbon Dioxide 30.0 H (22-29) mmol/L Anion Gap (7-16) BUN 29 H (8-23) mg/dL Creatinine 1.5 H (0.7-1.2) mg/dL Random Glucose 110 H (74-109) mg/dL Condition at Discharge: (2) Stable Discharge Diagnosis: Fall, chronic Afib, continuous churn buttermaker anticoagulation Discharge Medications - Discharge Medications Home Medications: Ambulatory Orders Amlodipine Besylate [Norvasc] 10 mg PO DAILY 01/29/15 [Last Taken 08/07/16] Donepezil HCl [Aricept] 10 mg PO DAILY 01/29/15 [Last Taken 08/07/16] Hydrochlorothiazide [Hctz 25Mg] 25 mg PO DAILY 01/29/15 [Last Taken 08/07/16] Omeprazole [Prilosec] 20 mg PO DAILY 01/29/15 [Last Taken 08/07/16] Warfarin Sodium [Coumadin] 7.5 mg PO ASDIR 01/29/15 [Last Taken 08/07/16] Aspirin [Adult Low Dose Aspirin EC] 81 mg PO DAILY 08/07/16 [Last Taken 08/07/16 ] Cholecalciferol (Vitamin D3) [Vitamin D3] 1,500 unit PO DAILY 08/07/16 [Last Taken 08/07/16] Finasteride [Proscar] 5 mg PO DAILY 08/07/16 [Last Taken 08/07/16] Carbidopa/Levodopa 25Mg/100Mg [Sinemet] 37.5 mg PO BID 03/25/17 [Last Taken Unknown] Sertraline HCl [Zoloft] 50 mg PO QHS 03/25/17 [Last Taken Unknown] Metoprolol Succinate 50 mg PO DAILY 10/17/17 [Last Taken Unknown] Discharge Plan - Discharge Instructions Activity at Discharge: Increase Activity as Tolerated Diet at Discharge: Other (low vitamin K diet) Additional Instructions: You have an appt with Nidia RENE at Dr Liu's office, October 25, 2017 at 845am. Get your INR done 1 hour before the appt that AM. Take 7.5mg coumadin daily, at the next appointment, they will adjust your coumadin level as needed. They are also going to re-establish care with [facility] to have them checking INR levels with home draws as it is difficult to transport the patient with only one person. Do not try to get the board out of the sliding door anymore, or do not put one in there anymore. Return to ER for any sudden onset headache, confusion, weakness in only one arm or leg or chest pain/shortness of breath. If you fall again, you will have to be evaluated by a medical provider immediately. You are always at risk for bleeding while on coumadin, continue to be careful at home. Return to your remaining regular home medications. Quality Measures - Quality Measures Quality Measures: Atrial Fibrillation & Atrial Flutter: Chronic Anticoagulation Therapy, Advance Directives, Documentation of Current Medications in Medical Record, Elder Maltreatment Screen and Follow-Up Plan, Screening for High Blood Pressure and F/U Documented - Current Medications Quality Measure: Measure #130: Documentation of Current Medications Documentation of Current Medications: <Current Medications Documented/Reviewed> [G8427] - Blood Pressure Screening Quality Measure: Screening for High Blood Pressure and Follow-Up Documented Does Patient Have Any of the Following: Active Dx of HTN Blood Pressure Classification: Pre-Hypertensive BP Reading Systolic Measurement: 105 Diastolic Measurement: 82 Screening for High Blood Pressure: Patient Exclusion, Hx of HTN [G9744] - Atrial Fibrillation and Atrial Flutter Quality Measure: Atrial Fibrillation & Atrial Flutter: Chronic Anticoagulation Therapy Does Patient Have Any of the Following: No CHADS2 Risk Stratification: Age 75 or Greater, Hypertension Risk Stratification Summary: One or more high risk factors OR more than one moderate risk factor exists. [G8972] Anticoagulation Therapy: <Oral anticoagulant Prescribed> [G8967] (continue current home meds as instructed) - Advance Directives Quality Measure: Measure #47: Care Plan Advance Directives Established: Yes (JOHOVAHS WITNESS, NO BLOOD) Advance Directives Information Provided To Patient: No Advance Directives on File: No Living Will: Yes Power of Manager Consumer: Yes Power of Manager Consumer Name: Karena Nichols Advance Care Planning: Not Discussed or Documented [[id number]] - Elder Abuse Suspicion Index Screening: Elder Abuse Suspicion Index Screening Rely on people for bathing, dressing, shopping, banking, etc: Yes Prevented from getting food, clothes, medication, etc: No Made to feel shamed or threatened by someone: No Forced to sign papers or use money against will: No Feel afraid, touched in ways not wanted or hurt physically: No Poor eye contact, withdrawn, malnourished, cuts or bruises: No Screening Result: Negative result EASI Reference Information: Darek ALCANTAR, Bonita Perkins, Mary Anne Noonan, Heather Centeno.Development and validation of a tool to assist physicians identification of elder abuse: The Elder Abuse Suspicion Index (EASI ). Journal of Elder Abuse and Neglect, 2008; 20 (3): 276-300. - Elder Maltreatment Screen Quality Measures: Elder Maltreatment Screen and Follow-Up Plan Elder Maltreatment Screen: <Negative, No Follow-Up Plan Required> [G8734]
--- NOTE | 2017-10-17 11:33 | CT SCAN REPORT ---
EXAM: CT SCAN HEAD WO CONTRAST HISTORY: FALL. COMPARISON: 10/16/2017. TECHNIQUE: Sequential axial images were obtained from the foramen magnum to the vertex without contrast administration. FINDINGS: There is age-appropriate cortical atrophy. There is periventricular small vessel ischemia. No large territorial infarct, hemorrhage, mass effect, or midline shift. No extraaxial fluid collection. The orbits, paranasal sinuses and mastoid air cells are normal. No depressed skull fracture. IMPRESSION: MILD PERIVENTRICULAR SMALL VESSEL ISCHEMIA. NO ACUTE INTRACRANIAL ABNORMALITY IS APPRECIATED. JOB NUMBER: [id number] [facility]
== END 2017-10-17 13:13 | disposition home or self-care (01) ==
LOC: ER 13:05 → MEDSURG 15:23
PROVIDERS: ADMIT Internal Medicine; ATTEND Internal Medicine
DX: S00.81XA Abrasion of other part of head, initial encounter (principal); W18.30XA Fall on same level, unspecified, initial encounter; I48.2 Chronic atrial fibrillation; Z79.01 Long term (current) use of anticoagulants; I10 Essential (primary) hypertension; G31.83 Neurocognitive disorder with Lewy bodies; F02.80 Dementia in other diseases classified elsewhere, unspecified severity, without behavioral disturbance, psychotic disturbance, mood disturbance, and anxiety; K21.9 Gastro-esophageal reflux disease without esophagitis; G47.30 Sleep apnea, unspecified; F41.0 Panic disorder [episodic paroxysmal anxiety]; R44.3 Hallucinations, unspecified; Z87.891 Personal history of nicotine dependence
CPT/HCPCS: 70450; 72125; 80048; 83735; 85025; 85610; 93005; 93010; 99220; 99285

== ENCOUNTER 2019-05-04 21:56 | Emergency (ER) | payer MEDICARE, MEDICAID ==
--- NOTE | 2019-05-04 22:16 | Emergency Department Record ---
History of Present Illness - General Chief Complaint: Fever Stated Complaint: FEVER Time Seen by Provider: 05/04/19 22:08 Source: Patient, Family Mode of Arrival: Wheelchair Limitations: No limitations - History of Present Illness Initial Comments: The patient is here with his family due to not feeling himself today. He woke up feeling hot and cold and his thought he may have a fever. There has been no hx of fall or any trauma, BULLOCK, cough, vomiting, diarrhea, CP, SOB, back pain or dysuria. The patient has a hx of severe Dementia and Parkinson's Dz but that is not new. MD Complaint: Malaise, Weakness Onset/Timin -: Days(s) Associated Symptoms: Other Treatments Prior to Arrival: None - Related Data Allergies Allergy/AdvReac Type Severity Reaction Status Date / Time Penicillins [PENICILLINS] Allergy Unknown HIVES Verified 05/04/19 22:02 Travel Screening - Travel/Exposure Within Last 30 Days Have you traveled within the last 30 days?: No - Travel/Exposure Within Last Year Have you traveled outside the [place] in the last year?: No - Additonal Travel Details Have you been exposed to anyone with a communicable illness?: No - Travel Symptoms Symptom Screening: None Review of Systems Constitutional: Reports: Malaise. Denies: Chills, Fever Eyes: Denies: Eye discharge ENT: Denies: Congestion Respiratory: Denies: Cough Cardiovascular: Denies: Chest pain Endocrine: Reports: Fatigue Gastrointestinal: Denies: Nausea Genitourinary: Denies: Dysuria Musculoskeletal: Denies: Arthralgia Skin: Denies: Bruising Past Medical History - SOCIAL HISTORY Smoking Status: Former smoker - RESPIRATORY Hx Respiratory Disorders: Yes Hx Sleep Apnea: Yes Hx of CPAP: Yes - CARDIOVASCULAR Hx Cardio Disorders: Yes Hx Hypertension: Yes Hx Irregular Heartbeat: Yes (a fib) - NEURO Hx Neuro Disorders: Yes Hx Dementia: Yes Comment:: Lewy body dementia, parkinsons - GI Hx GI Disorders: Yes Hx Reflux: Yes Hx of Polyps: Yes - Hx Genitourinary Disorders: Yes Hx Bladder Problem: Yes (urgency) - ENDOCRINE Hx Endocrine Disorders: No - MUSCULOSKELETAL Hx Musculoskeletal Disorders: Yes Hx Arthritis: Yes - PSYCH Hx Psych Problems: Yes Hx Anxiety: Yes Comment:: panic attacks and hallucinations - HEMATOLOGY/ONCOLOGY Hx Hematology/Oncology Disorders: Yes Hx Bruising: Yes Hx Clotting Problems: Yes (r/t coumadin; produces too much Vit K) Family Medical History Any Significant Family History?: Yes Hx Cancer: Father *Cancer Comment: colon Hx Dementia: Father Hx Diabetes: Mother Hx Heart Disease: Mother Hx HTN: Mother Physical Exam - General General Appearance: Alert, Cooperative, No acute distress - Head Head exam: Atraumatic, Normocephalic - Eye Eye exam: Normal appearance, PERRL - ENT ENT exam: Mucous membranes moist. negative: Mucous membranes dry Throat exam: Normal inspection. negative: Tonsillar erythema, Tonsillar exudate - Neck Neck exam: Normal inspection, Full ROM. negative: Tenderness - Respiratory Respiratory exam: Normal lung sounds bilaterally. negative: Respiratory dis tress - Cardiovascular Cardiovascular Exam: Normal heart sounds, Irregular rhythm - GI/Abdominal GI/Abdominal exam: Soft, Normal bowel sounds. negative: Tenderness - Extremities Extremities exam: Normal inspection, Full ROM, Normal capillary refill. negative: Tenderness - Neurological Neurological exam: Abnormal gait (Chronic.), Alert, Other (The patient has a significant resting tremor but that is a chronic issue.). negative: Motor sens ory deficit, Normal gait, Oriented X3 Course Vital Signs 05/04/19 22:07 Temperature 98.4 F Pulse Rate [ 69 Pulse Ox Probe] Respiratory 18 Rate Blood Pressure 122/66 [Left Arm] Pulse Ox 97 - Reevaluation(s) Reevaluation #1: The patient has had no change in his exam while in the ED. He still has a significant resting tremor but no fever. The patient's lab work is WNL's but we were unable to obtain a UA. The patient has no fever or elevated WBC while here in the ER so I do clinically doubt any urine issues. He is to continue his regular medicines and see his family doctor later this week for recheck. 05/05/19 00:00 Medical Decision Making - Data Complexity MDM Data: Labs Ordered and/or Reviewed, X-Ray Ordered and/or Reviewed - Lab Data Result diagrams: 05/04/19 22:20 05/04/19 22:20 - Radiology Data Radiology results: Report reviewed (CXR: Neg for any acute changes.) Disposition Disposition: Discharge Clinical Impression: Tremors of nervous system Disposition: Home, Self-Care Condition: (2) Stable Instructions: Fatigue (ED) Additional Instructions: Please continue your regular medicines and please see your family doctor this week for recheck. Return to the ER for any worsening issues. Forms: Patient Portal Access Time of Disposition: 23:59 Quality - Quality Measures Quality Measures: N/A - Blood Pressure Screening View Details: Yes Does Patient Have Any of the Following: Active Dx of HTN Blood Pressure Classification: Hypertensive Reading Systolic Measurement: 146 Diastolic Measurement: 77 Screening for High Blood Pressure: Patient Exclusion, Hx of HTN [G9744]
[2019-05-04] MEDS ORDERED: 0.9 % SODIUM CHLORIDE 1,000 ML BAG IV ONE (22:18)
[2019-05-04 22:30] LABS: ABSOLUTE NEUTROPHIL COUNT 5.13; BASO % 0.5 % (0-6); EOS % 2.7 % (0-6); GRAN % 65.1 % (47-80); HEMATOCRIT 35.1 % (42.0-52.0); HEMOGLOBIN 10.9 gm/dl (14.0-18.0); LYMPH % 22.2 % (16-45); MEAN CELL VOLUME 88.9 fl (81-97); MEAN CORPUSCULAR HGB CONC 31.1 g/dl (32-36); MEAN PLATELET VOLUME 8.9 fl (7.4-10.4); MONO % 9.5 % (0-9); PLATELET COUNT 314 K/uL (130-400); RED BLOOD COUNT 3.95 M/uL (4.40-5.70); WHITE BLOOD COUNT W/O DIFF 7.9 K/uL (4.2-12.2)
[2019-05-04 22:32] LABS: MEAN CORPUSCULAR HEMOGLOBIN 27.5 pg (27-33)
[2019-05-04 22:43] LABS: INR 2.5; PARTIAL THROMBOPLASTIN TIME 41.7 SECONDS (24.5-39.1); PROTHROMBIN TIME (PATIENT) 24.8 SECONDS (9.5-12.1)
[2019-05-04 22:44] LABS: BILIRUBIN,TOTAL 0.3 mg/dL (0.2-1.0); CREATININE 1.4 mg/dL (0.7-1.2); TOTAL PROTEIN 6.5 g/dL (6.6-8.7)
[2019-05-04 22:49] LABS: ALB/GLOB RATIO 1.6 (1.1-1.8); C-REACTIVE PROTEIN 0.33 mg/dL (<0.5)
--- NOTE | 2019-05-04 23:05 | RADIOLOGY REPORT ---
EXAMINATION: Two View Chest Radiographs EXAM DATE: 05/04/2019 10:54 PM TECHNIQUE: Frontal and lateral views INDICATION: fever by hx. COMPARISON: None ENCOUNTER: Not applicable FINDINGS: The heart, mediastinum, and pulmonary vasculature are normal. No lung consolidation or pleural effu sions are present. IMPRESSION: No acute pulmonary disease process Dictated by: Erin Whitehead DO on 05/04/2019 11:03 PM. .
== END 2019-05-05 00:19 | disposition home or self-care (01) ==
LOC: ER 21:56
DX: G20 Parkinson's disease (principal); F02.80 Dementia in other diseases classified elsewhere, unspecified severity, without behavioral disturbance, psychotic disturbance, mood disturbance, and anxiety; R50.9 Fever, unspecified; R53.1 Weakness; I10 Essential (primary) hypertension; Z87.891 Personal history of nicotine dependence; Z79.01 Long term (current) use of anticoagulants
CPT/HCPCS: 71046; 80053; 85025; 85610; 85730; 86140; 99284; J7030